=== PATIENT | male | born 1980 | race African-American/Black ===

== ENCOUNTER 2022-03-10 02:57 | Emergency (ER) | payer SELFPAY ==
[~2022-03-10] VITALS: Ht 177.8 cm; Wt 84.0 kg
[2022-03-10 03:05] VITALS: BP 128/72
[2022-03-10] MEDS ORDERED: HYDR25TA MT (12:34)
[2022-03-10] MEDS ORDERED: LISI10TA26 MT (12:34)
[2022-03-10] MEDS ORDERED: METF-414 MT (12:34)
[2022-03-10] MEDS ORDERED: NAPR-1176 MT (12:36)
[2022-03-10] MEDS ORDERED: ABIL10 MT (12:52)
[2022-03-10] MEDS ORDERED: OLAN10TA3 MT (12:52)
== END 2022-03-10 05:00 | disposition left against medical advice (07) ==
LOC: ER 02:57
DX: Z53.21 Procedure and treatment not carried out due to patient leaving prior to being seen by health care provider (principal)

== ENCOUNTER 2022-03-10 07:38 | Emergency (ER) | payer SELFPAY ==
[~2022-03-10] VITALS: Ht 172.7 cm; Wt 82.0 kg
[2022-03-10 08:30] VITALS: BP 143/110
[2022-03-10 10:55] LABS: CHLORIDE 96 mEq/L (98-107)
[2022-03-10] MEDS ORDERED: HYDR25TA MT (12:34)
[2022-03-10] MEDS ORDERED: LISI10TA26 MT (12:34)
[2022-03-10] MEDS ORDERED: METF-414 MT (12:34)
[2022-03-10] MEDS ORDERED: NAPR-1176 MT (12:36)
[2022-03-10] MEDS ORDERED: OLAN10TA3 MT (12:52)
[2022-03-10] MEDS ORDERED: ABIL10 MT (12:52)
== END 2022-03-10 13:07 | disposition left against medical advice (07) ==
LOC: ER 08:41
DX: R60.0 Localized edema (principal); N17.9 Acute kidney failure, unspecified; E87.1 Hypo-osmolality and hyponatremia; I44.2 Atrioventricular block, complete; E11.65 Type 2 diabetes mellitus with hyperglycemia; I10 Essential (primary) hypertension; F20.9 Schizophrenia, unspecified; F31.9 Bipolar disorder, unspecified; Z59.00 Homelessness unspecified; Z76.0 Encounter for issue of repeat prescription; Z79.84 Long term (current) use of oral hypoglycemic drugs; Z86.718 Personal history of other venous thrombosis and embolism; Z98.890 Other specified postprocedural states; Z79.899 Other long term (current) drug therapy
CPT/HCPCS: 36415; 71045; 80048; 83880; 84484; 93005; 93971; 99285